=== PATIENT | male | born 1985 | race Two or more races ===

== ENCOUNTER 2016-11-03 18:13 | Emergency (ER) | payer SELFPAY ==
[2016-11-03 19:33] LABS: URINE SOURCE CLEAN CATCH
[2016-11-03 19:38] LABS: URINE APPEARANCE CLEAR; URINE BLOOD 2+ (NEG); URINE COLOR DK YELLOW; URINE GLUCOSE NEG (NEG); URINE KETONE TRACE (NEG); URINE LEUKOCYTE ESTERASE NEG (NEG); URINE NITRATE NEG (NEG); URINE PROTEIN 1+ (NEG); URINE SPECIFIC GRAVITY 1.036 (1.003-1.035)
[2016-11-03 19:40] LABS: URINE BACTERIA AUWI NEG (NEGATIVE); URINE SQUAMOUS EPITHELIAL CELL NONE SEEN /[HPF]; UWBCS1 AUWI 0-2 (0-5)
[2016-11-03 19:52] LABS: CULTURE INDICATED? NO; URINE BILIRUBIN NEG (NEG)
[2016-11-03 19:53] LABS: BASOPHIL% 0.2 % (0-2.5); EOSINOPHIL# 0.1 X10e3 (0-0.7); EOSINOPHIL% 1.5 % (0.0-7.0); HEMATOCRIT 48.2 % (38.0-50.0); HEMOGLOBIN 15.9 gm/dL (13.0-16.0); LYMPHOCYTE% 40.5 % (17.0-45.0); MEAN CELL VOLUME 82.6 FL (83-96); MEAN CORPUSCULAR HEMOGLOBIN 27.2 PG (28-34); MEAN PLATELET VOLUME 7.2 FL (6.5-11.5); MONOCYTE# 0.5 X10e3 (0-1.0); MONOCYTE% 10.9 % (3.0-12.0); NEUTROPHIL# 2.3 X10e3 (1.5-7.1); NEUTROPHIL% 46.9 % (40-75); PLATELET COUNT 254 X10e3 (140-420); RED BLOOD COUNT 5.83 X10e (3.90-5.60); RED CELL DISTRIBUTION WIDTH 13.4 % (11.0-15.5); WHITE BLOOD COUNT 4.8 X10e3 (4.0-10.5)
[2016-11-03 19:56] LABS: DIFF IND NO
[2016-11-03 20:17] LABS: ALBUMIN SERUM 4.5 g/dL (3.5-5.0); BILIRUBIN, DIRECT 0.1 mg/dL (0.0-0.2); BILIRUBIN,INDIRECT 0.5 mg/dL (0.0-0.9); BILIRUBIN,TOTAL 0.6 mg/dL (0.2-2.0); CALCIUM SERUM 9.5 mg/dL (8.4-10.2); GLOM FILT RATE Estimated 101.3 mL/min (>60); POTASSIUM 4.2 mmol/L (3.5-5.1)
== END 2016-11-03 20:39 | disposition home or self-care (01) ==
LOC: CED 18:13
DX: R10.84 Generalized abdominal pain (principal); R31.9 Hematuria, unspecified
CPT/HCPCS: 36415; 80048; 80076; 81003; 83690; 85025; 99284